=== PATIENT | male | born 1970 | race American Indian/Alaskan Native ===

== ENCOUNTER 2018-10-17 17:27 | Emergency (ER) | payer SELFPAY ==
--- NOTE | 2018-10-17 17:30 | Emergency Department Report ---
Blank Doc - Documentation Documentation: This is a 48-year-old male that presents to the ED with c/o of detox for alcohol and cocaine. Stated last time using this was this morning. Denies any SI/HI/ Denies any other complaints. This initial assessment diagnostic orders/clinical plan/treatment(s) is/are subject to change based on patient's health status, clinical progression and re- assessment by fellow clinical providers in the ED. Further treatment and workup at subsequent clinical providers discretion. Patient/guardians urged not to elope from ED s their condition may be serious if not clinically assessed and managed. Initial orders include: 1-patient sent to [facility] for further evaluation and treatment. 2- labs 3-UA
[2018-10-17 17:33] VITALS: BP 135/79
[2018-10-17 18:06] LABS: Bilirubin,Urine NEG (Negative); Blood,Urine NEG (Negative); Color,Urine Yellow (Yellow); Mucus,Urine FEW /HPF; Protein,Urine <15 mg/dL mg/dL (Negative)
[2018-10-17 18:13] LABS: Amphetamine Screen,Urine PRESUMPTIVE NEGATIVE; Benzodiazepines Screen,Urine PRESUMPTIVE NEGATIVE; Cannabinoid Screen,Urine PRESUMPTIVE NEGATIVE; Methadone Screen,Urine PRESUMPTIVE NEGATIVE; Opiate Screen,Urine PRESUMPTIVE NEGATIVE
[2018-10-17 18:21] LABS: Basophils % (Auto) 0.7 % (0.0-1.8); Eosinophils # (Auto) 0.2 K/mm3 (0.0-0.4); Eosinophils % (Auto) 3.6 % (0.0-4.3); Hemoglobin 15.7 gm/dl (11.8-15.2); Lymphocytes # (Auto) 1.8 K/mm3 (1.2-5.4); Lymphocytes % (Auto) 28.1 % (13.4-35.0); Mean Corpuscular HGB Conc 33 % (32-34); Mean Corpuscular Volume 94 fl (84-94); Monocytes # (Auto) 0.9 K/mm3 (0.0-0.8); Monocytes % (Auto) 14.3 % (0.0-7.3); Platelet Count 285 K/mm3 (140-440); Red Blood Count 5.12 M/mm3 (3.65-5.03); Red Cell Distribution Width 15.6 % (13.2-15.2)
[2018-10-17 18:26] LABS: Cocaine Screen,Urine PRESUMPTIVE POSITIVE
[2018-10-17 18:35] LABS: Alanine Aminotransferase 30 units/L (7-56); Albumin 3.4 g/dL (3.9-5); BUN/Creatinine Ratio 16; Blood Urea Nitrogen 16 mg/dL (9-20); Calcium 8.5 mg/dL (8.4-10.2); Hemolysis Index 8
--- NOTE | 2018-10-17 20:36 | Emergency Department Report ---
ED Alcohol HPI - General Chief Complaint: Alcohol Stated Complaint: DETOX Time Seen by Provider: 10/17/18 17:29 Source: patient Mode of arrival: Ambulatory Limitations: No Limitations - History of Present Illness Initial Comments: Patient is here for detoxification from alcohol and cocaine abuse. Patient is said he has been abusing alcohol and cocaine for the last 8 years. He stopped for a while and then relapsed a month ago. Now he wants detoxification from alcohol and cocaine. He has no medical complaints today. He denies suicide ideation or homicide ideation. Patient said he has history of depression and he has been taking Lexapro but he ran out of his medication couple of months ago. MD Complaint: alcohol dependence, medical clearance for det Last Drink: unknown Chronic Alcohol Use: Yes Previous Visits for Alcohol Intoxication?: Yes Recent Trauma: No Associated Symptoms: denies other symptoms Treatments Prior to Arrival: none - Related Data Home Medications Medication Instructions Recorded Confirmed Last Taken No Known Home Medications [No 10/17/18 10/17/18 Unknown Reported Home Medications] Allergies Allergy/AdvReac Type Severity Reaction Status Date / Time No Known Allergies Allergy Unverified 08/15/18 09:41 ED Review of Systems ROS: Stated complaint: DETOX Other details as noted in HPI Comment: All other systems reviewed and negative Constitutional: denies: chills, fever Eyes: denies: eye pain, eye discharge, vision change ENT: denies: ear pain, throat pain Respiratory: denies: cough, shortness of breath, wheezing Cardiovascular: denies: chest pain, palpitations Endocrine: no symptoms reported Gastrointestinal: denies: abdominal pain, nausea, diarrhea Genitourinary: denies: urgency, dysuria Musculoskeletal: denies: back pain, joint swelling, arthralgia Skin: denies: rash, lesions Neurological: denies: headache, weakness, paresthesias Psychiatric: denies: anxiety, depression Hematological/Lymphatic: denies: easy bleeding, easy bruising ED Past Medical Hx - Past Medical History Previous Medical History?: Yes Hx Psychiatric Treatment: Yes (Depression) Additional medical history: ETOH abuse, Cocaine abuse - Surgical History Past Surgical History?: Yes Additional Surgical History: Brain - Social History Smoking Status: Current Every Day Smoker Substance Use Type: Alcohol, Cocaine, Marijuana - Medications Home Medications: Home Medications Medication Instructions Recorded Confirmed Last Taken Type No Known Home Medications [No 10/17/18 10/17/18 Unknown History Reported Home Medications] ED Physical Exam - General Limitations: No Limitations General appearance: alert, in no apparent distress - Head Head exam: Present: atraumatic, normocephalic, normal inspection - Eye Eye exam: Present: normal appearance, PERRL, EOMI Pupils: Present: normal accommodation - ENT ENT exam: Present: normal exam, normal orophraynx, mucous membranes moist - Neck Neck exam: Present: normal inspection, full ROM. Absent: tenderness - Respiratory Respiratory exam: Present: normal lung sounds bilaterally. Absent: respiratory distress - Cardiovascular Cardiovascular Exam: Present: regular rate, normal rhythm, normal heart sounds. Absent: systolic murmur, diastolic murmur, rubs, gallop - GI/Abdominal GI/Abdominal exam: Present: soft, normal bowel sounds. Absent: distended, tenderness, guarding, rebound - Rectal Rectal exam: Present: deferred - Extremities Exam Extremities exam: Present: normal inspection, full ROM, normal capillary refill. Absent: tenderness - Back Exam Back exam: Present: normal inspection, full ROM. Absent: tenderness - Neurological Exam Neurological exam: Present: alert, oriented X3, CN II-XII intact - Psychiatric Psychiatric exam: Present: normal affect, normal mood - Skin Skin exam: Present: warm, dry, intact, normal color. Absent: rash ED Course Vital Signs 10/17/18 10/17/18 17:29 17:31 Temperature 97.8 F Pulse Rate 81 Respiratory 18 18 Rate Blood Pressure 135/79 O2 Sat by Pulse 97 97 Oximetry ED Medical Decision Making - Lab Data Result diagrams: 10/17/18 18:02 10/17/18 18:02 - EKG Data -: EKG Interpreted by Me EKG shows normal: sinus rhythm Rate: normal (77) - EKG Data When compared to previous EKG there are: previous EKG unavailable Interpretation: nonspecific ST-T wave manav, LVH 10/17/18 20:52 No STEMI. - Medical Decision Making Medical Clearance for alcohol and cocaine abuse. Patient is medically cleared for evaluation for detoxification from alcohol and cocaine. However patient does meet criteria for admission to [facility] for detoxification in this hospital according to the mental health worker who evaluated the patient in the emergency room. She recommended discharging the patient home and for the patient to follow up with the facilities where he can get detoxification. She have provided resources for the patient to follow-up at one of those facilities. Critical care attestation.: If time is entered above; I have spent that time in minutes in the direct care of this critically ill patient, excluding procedure time. ED Disposition Clinical Impression: Alcohol abuse, Cocaine abuse Disposition: DC-01 TO HOME OR SELFCARE Is pt being admited?: No Does the pt Need Aspirin: No Condition: Stable Instructions: Abuse of Alcohol (ED), Cocaine Abuse (ED) Additional Instructions: Please follow up with the resource places you have being provided by the mental health worker for detoxification from alcohol and cocaine. Please STOP using Cocaine and Alcohol. Return to the emergency room if her condition worsens. Referrals: PRIMARY CARE, [Primary Care Provider] - 3-5 Days Time of Disposition: 22:18
== END 2018-10-17 22:30 | disposition home or self-care (01) ==
LOC: ED 17:27
DX: F10.10 Alcohol abuse, uncomplicated (principal); F14.10 Cocaine abuse, uncomplicated; F32.9 Major depressive disorder, single episode, unspecified; F17.200 Nicotine dependence, unspecified, uncomplicated; F12.10 Cannabis abuse, uncomplicated; Z79.899 Other long term (current) drug therapy
CPT/HCPCS: 36415; 80053; 80307; 81001; 83735; 84443; 85025; 93005; 93010; 99284; G0480; 80320

== ENCOUNTER 2018-12-08 19:01 | Emergency (ER) | payer OTHER ==
[2018-12-08 19:35] VITALS: BP 113/76
--- NOTE | 2018-12-08 19:35 | Emergency Department Report ---
Blank Doc - Documentation Documentation: This is a 48-year-old male that presents with right middle finger pain. This initial assessment/diagnostic orders/clinical plan/treatment(s) is/are subject to change based on patient's health status, clinical progression and re- assessment by fellow clinical providers in the ED. Further treatment and workup at subsequent clinical providers discretion. Patient/guardians urged not to elope from the ED as their condition may be serious if not clinically assessed and managed. Initial orders include: 1- Patient sent to [facility] for further evaluation and treatment 2- xray
--- NOTE | 2018-12-08 20:56 | XRay Report ---
PROCEDURE: XR FINGER(S) 2+V RT TECHNIQUE: 3 views right hand HISTORY: right middle finger pain no trauma history provided COMPARISONS: None FINDINGS: Normal bony mineralization. No fracture or dislocation. No radiopaque foreign body or soft tissue gas. Mild triangular fibrocartilage calcification and mild radiocarpal joint space narrowing. IMPRESSION: No abnormality of the distal right third digit.. This document is electronically signed by Justine Giraldo MD., December 08 2018 08:54:13 PM ET
--- NOTE | 2018-12-08 22:28 | Emergency Department Report ---
- General Chief complaint: Extremity Problem,Nontraumatic Stated complaint: RT MIDDLE FINGER PAIN Time Seen by Provider: 12/08/18 19:31 Source: patient Mode of arrival: Ambulatory Limitations: No Limitations - History of Present Illness Initial comments: 48-year-old [place] male reports emerge department complaining of pain to his right third third digit off and on since 2018 which occur for that unknown etiology. [place] dull throbbing pain. There some occasional redness which is growing more tender since the onset. The pain has not been consistent since August but has been fluctuating. 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 Reports no fever, chills, sweats, chest pain, palpitations, numbness, tingling, discharge from the finger. Was seen in August and diagnosed with arthralgia, but thinks that there is more going on, has not yet followed up with primary care provider as instructed Location: R hand Severity: mild, moderate (maximum moderate-severe pain. Currently, worse with touch) Quality: dull Consistency: constant Improves with: none Worsens with: none Treatments Prior to Arrival: none - Related Data Previous Rx's Medication Instructions Recorded Last Taken Type Acyclovir [Zovirax Tab] 800 mg PO 5XD #50 tablet 12/08/18 Unknown Rx Ketorolac [Toradol] 10 mg PO Q6H PRN #15 tablet 12/08/18 Unknown Rx Sulfamethoxazole/Trimethoprim 1 each PO BID #20 tablet 12/08/18 Unknown Rx [Bactrim Ds] Allergies Allergy/AdvReac Type Severity Reaction Status Date / Time No Known Allergies Allergy Unverified 08/15/18 09:41 Abscess Boil HPI - HPI Chief Complaint: Extremity Problem,Nontraumatic Stated Complaint: RT MIDDLE FINGER PAIN Time Seen by Provider: 12/08/18 19:31 Home Medications: Previous Rx's Medication Instructions Recorded Last Taken Type Acyclovir [Zovirax Tab] 800 mg PO 5XD #50 tablet 12/08/18 Unknown Rx Ketorolac [Toradol] 10 mg PO Q6H PRN #15 tablet 12/08/18 Unknown Rx Sulfamethoxazole/Trimethoprim 1 each PO BID #20 tablet 12/08/18 Unknown Rx [Bactrim Ds] Allergies/Adverse Reactions: Allergies Allergy/AdvReac Type Severity Reaction Status Date / Time No Known Allergies Allergy Unverified 08/15/18 09:41 ED Review of Systems ROS: Stated complaint: RT MIDDLE FINGER PAIN Other details as noted in HPI Constitutional: denies: chills, fever Eyes: denies: eye pain, eye discharge, vision change ENT: denies: ear pain, throat pain Respiratory: denies: cough, shortness of breath, wheezing Cardiovascular: denies: chest pain, palpitations Endocrine: no symptoms reported Gastrointestinal: denies: abdominal pain, nausea, diarrhea Genitourinary: denies: urgency, dysuria Musculoskeletal: denies: back pain, joint swelling, arthralgia Skin: denies: rash, lesions Neurological: denies: headache, weakness, paresthesias Psychiatric: denies: anxiety, depression Hematological/Lymphatic: denies: easy bleeding, easy bruising ED Past Medical Hx - Past Medical History Previous Medical History?: Yes Hx Psychiatric Treatment: Yes (Depression) Additional medical history: ETOH abuse, Cocaine abuse - Surgical History Past Surgical History?: Yes Additional Surgical History: Brain sx, 2016 - Social History Smoking Status: Former Smoker Substance Use Type: None - Medications Home Medications: Home Medications Medication Instructions Recorded Confirmed Last Taken Type Acyclovir [Zovirax Tab] 800 mg PO 5XD #50 tablet 12/08/18 Unknown Rx Ketorolac [Toradol] 10 mg PO Q6H PRN #15 tablet 12/08/18 Unknown Rx Sulfamethoxazole/Trimethoprim 1 each PO BID #20 tablet 12/08/18 Unknown Rx [Bactrim Ds] ED Physical Exam - General Limitations: No Limitations General appearance: alert, in no apparent distress - Head Head exam: Present: atraumatic, normocephalic - Eye Eye exam: Present: normal appearance, PERRL, EOMI Pupils: Present: normal accommodation - ENT ENT exam: Present: normal exam, mucous membranes moist, TM's normal bilaterally - Neck Neck exam: Present: normal inspection, full ROM - Respiratory Respiratory exam: Present: normal lung sounds bilaterally. Absent: respiratory distress - Cardiovascular Cardiovascular Exam: Present: regular rate, normal rhythm. Absent: systolic murmur, diastolic murmur, rubs, gallop - GI/Abdominal GI/Abdominal exam: Present: soft, normal bowel sounds - Rectal Rectal exam: Present: deferred - Extremities Exam Extremities exam: Present: normal inspection - Back Exam Back exam: Present: normal inspection - Neurological Exam Neurological exam: Present: alert, oriented X3 - Psychiatric Psychiatric exam: Present: normal affect, normal mood - Skin Skin exam: Present: warm, dry, intact, normal color. Absent: rash ED Course Vital Signs 12/08/18 19:33 Temperature 98.1 F Pulse Rate 66 Respiratory 18 Rate Blood Pressure 113/76 O2 Sat by Pulse 100 Oximetry Critical care attestation.: If time is entered above; I have spent that time in minutes in the direct care of this critically ill patient, excluding procedure time. ED Disposition Clinical Impression: Finger infection Disposition: DC-01 TO HOME OR SELFCARE Is pt being admited?: No Does the pt Need Aspirin: No Condition: Stable Additional Instructions: What's to know about herpetic holly? Last reviewed Thu28 Jan 2017 By Diego Jerry Reviewed by Annalisa Serrano MD, MPH Symptoms Causes and risk factors Treatment Home care [place] Herpetic holly or holly finger is a painful infection that may cause other symptoms to show up. The infection may appear in adults or children, and there are several ways to treat it. Herpetic holly is an infection created by the herpes simplex virus (HSV). The infection produces a painful wound called a holly on the fingers. Caused by the herpes simplex virus (HSV), herpetic holly occurs mostly on the fleshy part of the index finger or thumb. Sometimes herpetic holly can develop on the toes. This article explores the symptoms, causes, and various treatment methods for this painful infection. Symptoms [herpetic holly wikicommons sarina toney md 16 october 2009] Herpetic holly lesions are generally small and very painful. When the herpes simplex virus infection appears on the finger in the form of a holly, the symptoms are similar to herpes on other parts of the body: Timing: The first symptoms usually appear 2-20 days after the person is exposed to the herpes simplex virus. Sensation: The infected area will burn or tingle, and the person may begin to experience pain before any noticeable lesion shows up. Infection: The finger will then begin to swell and eduardo as the infection develops. Blisters will appear and begin to fill with liquid or pus. There may be just one blister, or a group of them may develop. They are typically small and very painful to the touch. Rupture: These blisters will then burst and scab over in the weeks to come. Once the scabs heal, the infection returns to its dormant state. Other symptoms may appear at any time during the infection, including: swollen lymph nodes in the armpits or elbow area a fever red solitario surrounding or leading away from the holly The sores that the infection creates may recur in some people over time. Whitlows will usually reappear in the same area as the primary infection. There may be certain factors which trigger recurrent HSV infections, such as herpetic holly, including: fever or recurring illness excessive stress hormonal imbalance excessive sun exposure surgery physical, mental, or emotional trauma Recurrent infections will also typically follow a pattern similar to the primary infection. People will feel sensations of tingling, burning, or itching about 24 hours before the sores show up. A recurrent infection usually lasts little more than a week and is not as strong as the primary infection. There may be fewer blisters during a recurrent infection, and those blisters may also be smaller and less painful. Causes and risk factors [dentists looking into a patients mouth] Medical and dental professionals have a higher risk of coming in contact with HSV-1. HSV is the virus that commonly causes cold sores and genital herpes. It is also the cause of herpetic holly. There are two types of HSV; HSV-1 and HSV-2. HSV-1 infections usually occur around the face, in the mouth, nose or lips. HSV-2 infections typically involve the area around the genitals. The infection can occur in men and women of all ages, though symptoms caused by HSV-1 appear to be more common in children and young adults. Certain professionals may be more at risk for HSV-1 and complications, such as herpetic holly. These people may include medical or dental professionals and anyone who works in close collaboration with people who have the infection. The rest of the population is commonly infected by HSV-2, often through sexual contact. People with weakened immune systems are more at risk for becoming infected with HSV. Herpetic holly is very contagious. Infections are easily spread by coming into direct contact with the infected sores or blisters of someone with herpetic holly. A person can also infect themselves if they touch one of their own cold sores or genital herpes sores with their fingers. It is vital that the holly is treated properly. Unchecked whitlows put a person at risk for superinfections or conditions, such as herpetic encephalitis, which is a herpes infection in the brain. Treatment Antiviral medications are often used to treat herpetic holly. These antivirals are effective in reducing the duration of symptoms in the primary infection as well as in recurrent infections. It is crucial to begin antiviral treatment within the first 48 hours of any symptoms occurring. Using an antiviral to treat herpetic holly after the initial 48 hours will likely have little effect. Antiviral treatment is used to help reduce the healing time and time spent in pain. Antiviral treatment may also reduce the risk for the virus to spread to other parts of the body. However, if the person does not take antiviral medications, the holly will heal itself over a few weeks without any drugs. [topical cream for dermatological conditions] Treatment for herpetic holly can involve oral medications and topical creams. Antiviral agents that are commonly used to treat herpetic holly include: oral valacyclovir oral acyclovir oral famciclovir topical acyclovir ointment analgesics to numb pain Antiviral medications are typically used for 1-2 weeks or until the infection clears up. In cases where the holly develops a secondary bacterial infection, antibiotics may also be necessary. On rare occasions, where people have severe recurrent outbreaks, a doctor may prescribe suppressive medications. People should take these suppressive antiviral medications daily to try to decrease outbreaks. It is important to note that antiviral medications can help treat an HSV outbreak, such as a herpetic holly, but they do not prevent future outbreaks. Antiviral drugs are not a treatment for HSV itself, only the symptoms. Home care People can support the recovery of herpetic holly in the home through a few different methods: Covering the infection: Lightly covering the infected area can help keep the virus from spreading. It is also important for people to refrain from popping or draining the blisters. This can cause the virus to spread even further or cause a secondary infection. Being hygienic: People should follow proper hygiene at all times, especially after coming into contact with the holly. People working in the medical or dental field should always follow basic hygiene rules and work with gloves whenever possible to protect themselves and other people. Switching to glasses: People who wear contacts may want to switch to glasses until the infection heals to avoid it spreading to the eyes. Many people take over the counter drugs or use ice packs to lessen the pain of the holly as well. Preventing spread: Avoiding contact with lesions is an important step in keeping the virus from spreading. Telling [place] people: People with HSV should also tell any medical or dental professional who works close to them about the virus so they can take measures to avoid it. [place] Herpes simplex virus can remain inactive in the nerve cells for a time, and may or may not cause symptoms. In some cases, people never have a recurring holly. In others, whitlows often return and require regular treatment. It is best for people to discuss their symptoms and treatment options with a qualified health hemodialysis patient care specialist. Together they can work out a plan that fits the person's individual needs and makes treatment as comfortable as possible. Prescriptions: Sulfamethoxazole/Trimethoprim [Bactrim Ds] 1 each PO BID #20 tablet Ketorolac [Toradol] 10 mg PO Q6H PRN #15 tablet PRN Reason: Pain Acyclovir [Zovirax Tab] 800 mg PO 5XD #50 tablet Referrals: NERI VILLANUEVA MD [Primary Care Provider] - 3-5 Days
== END 2018-12-08 22:40 | disposition home or self-care (01) ==
LOC: ED 19:01
DX: L08.9 Local infection of the skin and subcutaneous tissue, unspecified (principal); F32.9 Major depressive disorder, single episode, unspecified; F14.10 Cocaine abuse, uncomplicated; Z87.891 Personal history of nicotine dependence

== ENCOUNTER 2019-07-26 07:49 | Emergency (ER) | payer SELFPAY ==
--- NOTE | 2019-07-26 08:41 | Emergency Department Report ---
ED General Adult HPI - General Chief complaint: Chest Pain Stated complaint: CHEST PAIN Time Seen by Provider: 07/26/19 08:27 Source: patient Mode of arrival: Ambulatory Limitations: No Limitations - History of Present Illness Initial comments: 49-year-old male presents to ED with complaint of right-sided chest pain 1 month. Patient states pain is intermittent, worse with movement, cough, sneezing. He denies fever, shortness of breath, leg pain or swelling, nausea or diaphoresis associated with this pain. Patient denies any injury or fall or hea vy lifting. Patient states he was seen at an outside hospital approximately 2 weeks ago for same symptoms, but reports a negative workup. -: month(s) (1) Location: chest Radiation: back (right side) Quality: aching Consistency: intermittent Improves with: immobilization Worsens with: movement, other (coughing, sneezing) Associated Symptoms: chest pain, cough. denies: diaphoresis, fever/chills, n ausea/vomiting, shortness of breath - Related Data Previous Rx's Medication Instructions Recorded Last Taken Type Acyclovir [Zovirax Tab] 800 mg PO 5XD #50 tablet 12/08/18 Unknown Rx Ketorolac [Toradol] 10 mg PO Q6H PRN #15 tablet 12/08/18 Unknown Rx Sulfamethoxazole/Trimethoprim 1 each PO BID #20 tablet 12/08/18 Unknown Rx [Bactrim Ds] Naproxen [Naprosyn] 500 mg PO BID #20 tablet 07/26/19 Unknown Rx methOCARBAMOL [Robaxin TAB] 500 mg PO Q8HR PRN #20 tablet 07/26/19 Unknown Rx Allergies Allergy/AdvReac Type Severity Reaction Status Date / Time No Known Allergies Allergy Verified 07/26/19 08:03 ED Review of Systems ROS: Stated complaint: CHEST PAIN Other details as noted in HPI Comment: All other systems reviewed and negative Constitutional: denies: chills, fever Respiratory: cough. denies: shortness of breath Cardiovascular: chest pain Gastrointestinal: denies: nausea, vomiting Musculoskeletal: other (denies leg pain or swelling) ED Past Medical Hx - Past Medical History Hx Psychiatric Treatment: Yes (Depression) Additional medical history: ETOH abuse, Cocaine abuse - Surgical History Additional Surgical History: Brain sx, 2016 - Social History Smoking Status: Current Every Day Smoker - Medications Home Medications: Home Medications Medication Instructions Recorded Confirmed Last Taken Type Acyclovir [Zovirax Tab] 800 mg PO 5XD #50 tablet 12/08/18 Unknown Rx Ketorolac [Toradol] 10 mg PO Q6H PRN #15 tablet 12/08/18 Unknown Rx Sulfamethoxazole/Trimethoprim 1 each PO BID #20 tablet 12/08/18 Unknown Rx [Bactrim Ds] Naproxen [Naprosyn] 500 mg PO BID #20 tablet 07/26/19 Unknown Rx methOCARBAMOL [Robaxin TAB] 500 mg PO Q8HR PRN #20 tablet 07/26/19 Unknown Rx ED Physical Exam - General Limitations: No Limitations General appearance: alert, in no apparent distress - Head Head exam: Present: atraumatic, normocephalic - Eye Eye exam: Present: normal appearance - ENT ENT exam: Present: mucous membranes moist - Neck Neck exam: Present: normal inspection - Respiratory Respiratory exam: Present: normal lung sounds bilaterally, chest wall tenderness (right anterior chest wall). Absent: respiratory distress - Cardiovascular Cardiovascular Exam: Present: regular rate, normal rhythm - GI/Abdominal GI/Abdominal exam: Present: soft. Absent: distended, tenderness - Extremities Exam Extremities exam: Present: normal inspection, other (pain with range of motion of right shoulder) - Back Exam Back exam: Present: normal inspection - Neurological Exam Neurological exam: Present: alert, oriented X3, CN II-XII intact. Absent: motor sensory deficit - Psychiatric Psychiatric exam: Present: normal affect, normal mood - Skin Skin exam: Present: warm, dry, intact, normal color. Absent: rash ED Course Vital Signs 07/26/19 07/26/19 07/26/19 07:57 08:03 09:37 Temperature 98.1 F 98.1 F Pulse Rate 72 73 Respiratory 18 18 16 Rate Blood Pressure 116/73 116/73 Blood Pressure [Left] O2 Sat by Pulse 97 96 Oximetry 07/26/19 09:50 Temperature Pulse Rate 71 Respiratory 16 Rate Blood Pressure Blood Pressure 118/71 [Left] O2 Sat by Pulse 97 Oximetry ED Medical Decision Making - EKG Data -: EKG Interpreted by Hi EKG shows normal: sinus rhythm, axis, intervals, QRS complexes, ST-T waves Rate: normal - EKG Data Interpretation: no acute changes - Radiology Data Radiology results: report reviewed, image reviewed - Medical Decision Making 49-year-old male with right-sided chest pain times one month. EKG and chest x- ray are unremarkable. Patient has chest wall tenderness on exam. Also has pain with range of motion of the right shoulder, which he underwent rotator cuff surgery approximately 4 years ago. Patient's pain appears to be musculoskeletal in origin. Prescriptions given. Outpatient follow-up advised. Return precautions given. - Differential Diagnosis costochondritis, pneumonia, pneumothorax, ACS Critical care attestation.: If time is entered above; I have spent that time in minutes in the direct care of this critically ill patient, excluding procedure time. ED Disposition Clinical Impression: Costochondritis Disposition: - TO HOME OR SELFCARE Is pt being admited?: No Condition: Stable Instructions: Costochondritis (ED) Prescriptions: Naproxen [Naprosyn] 500 mg PO BID #20 tablet methOCARBAMOL [Robaxin TAB] 500 mg PO Q8HR PRN #20 tablet PRN Reason: Muscle Spasm Referrals: [facility] [Provider Group] - 3-5 Days [facility], [Primary Care Provider] - 3-5 Days Time of Disposition: 09:38
--- NOTE | 2019-07-26 09:30 | XRay Report ---
CHEST 2 VIEWS INDICATION: R chest pain. COMPARISON: FINDINGS: Support devices: None. Heart: Within normal limits. Lungs: Bronchovascular markings are prominent. No acute air space or interstitial disease. Pleura: No significant pleural effusion. No pneumothorax. Additional findings: None. IMPRESSION: 1. No acute findings. Signer Name: Ajit Walters MD Signed: 07/26/2019 9:26 AM Workstation Name: [id number]
[2019-07-26 09:51] VITALS: BP 118/71
== END 2019-07-26 09:50 | disposition home or self-care (01) ==
LOC: ED 07:49
DX: M94.0 Chondrocostal junction syndrome [Tietze] (principal); F32.9 Major depressive disorder, single episode, unspecified; F10.10 Alcohol abuse, uncomplicated; F17.200 Nicotine dependence, unspecified, uncomplicated; Z79.899 Other long term (current) drug therapy
CPT/HCPCS: 71046; 93005; 93010

== ENCOUNTER 2019-07-31 07:00 | Emergency (ER) | payer SELFPAY ==
[2019-07-31 12:01] LABS: Basophils # (Auto) 0.1 K/mm3 (0.0-0.1); Eosinophils # (Auto) 0.2 K/mm3 (0.0-0.4); Eosinophils % (Auto) 3.6 % (0.0-4.3); Hemoglobin 14.4 gm/dl (11.8-15.2); Lymphocytes # (Auto) 1.2 K/mm3 (1.2-5.4); Lymphocytes % (Auto) 18.6 % (13.4-35.0); Mean Corpuscular HGB Conc 33 % (32-34); Mean Corpuscular Volume 95 fl (84-94); Monocytes # (Auto) 0.9 K/mm3 (0.0-0.8); Monocytes % (Auto) 14.2 % (0.0-7.3); Platelet Count 266 K/mm3 (140-440); Red Blood Count 4.55 M/mm3 (3.65-5.03); Red Cell Distribution Width 15.4 % (13.2-15.2)
--- NOTE | 2019-07-31 12:21 | XRay Report ---
CHEST 2 VIEWS INDICATION: MAIN: Chest Pain; Pt seems a slightly sleepy. Responds appropriately to all question. C/o L chest and axillary pain with inspiration and cough. Denies fever or production in cough. . COMPARISON: 07/26/2019 FINDINGS: Support devices: None. Heart: Within normal limits. Lungs/pleura: Minimal streaky bibasilar airspace disease likely representing atelectasis. Otherwise c lear lungs. No pneumothorax. Additional findings: None. IMPRESSION: 1. Pulmonary findings as above. Signer Name: Gaurav Guidry MD Signed: 07/31/2019 12:17 PM Workstation Name: [id number]
[2019-07-31 12:22] LABS: BUN/Creatinine Ratio 12; Blood Urea Nitrogen 12 mg/dL (9-20); Calcium 8.6 mg/dL (8.4-10.2); Hemolysis Index 2
--- NOTE | 2019-07-31 12:46 | Emergency Department Report ---
ED Chest Pain HPI - General Chief Complaint: Chest Pain Stated Complaint: STILL CHEST PAIN Time Seen by Provider: 07/31/19 12:30 Source: patient Mode of arrival: Ambulatory Limitations: No Limitations - History of Present Illness Initial Comments: 49-year-old male with a past medical history of depression, intermittent cocaine use, intermittent alcohol use presents to the hospital complains of right sided chest pain 1 month. Pain is aching, constant, worsens movement, palpation, cough, and deep inspiration. Pain is moderate in intensity. Patient is drowsy during an examination and states that he works third shift. Patient denies shortness of breath, calf tenderness, leg edema, recent travel, history of PE/DVT, nausea, vomiting, or diaphoresis. Patient has a history of right rotator cuff surgery. He denies recent heavy lifting. Patient was seen and evaluated here July 26 for the same pain. Diagnosed with costochondritis and prescribed, Naprosyn and Robaxin. Patient has not picked up the medication from the pharmacy. - Related Data Previous Rx's Medication Instructions Recorded Last Taken Type Acyclovir [Zovirax Tab] 800 mg PO 5XD #50 tablet 12/08/18 Unknown Rx Ketorolac [Toradol] 10 mg PO Q6H PRN #15 tablet 12/08/18 Unknown Rx Sulfamethoxazole/Trimethoprim 1 each PO BID #20 tablet 12/08/18 Unknown Rx [Bactrim Ds] Naproxen [Naprosyn] 500 mg PO BID #20 tablet 07/26/19 Unknown Rx methOCARBAMOL [Robaxin TAB] 500 mg PO Q8HR PRN #20 tablet 07/26/19 Unknown Rx Allergies Allergy/AdvReac Type Severity Reaction Status Date / Time No Known Allergies Allergy Verified 07/26/19 08:03 Heart Score - HEART Score History: Slightly suspicious EKG: Normal Age: 45-65 Risk factors: 1-2 risk factors Troponin: < normal limit HEART Score: 2 ED Review of Systems ROS: Stated complaint: STILL CHEST PAIN Other details as noted in HPI Comment: All other systems reviewed and negative ED Past Medical Hx - Past Medical History Previous Medical History?: Yes Hx Psychiatric Treatment: Yes (Depression) Additional medical history: ETOH abuse, Cocaine abuse - Surgical History Past Surgical History?: Yes Additional Surgical History: Brain sx, 2016 - Social History Smoking Status: Current Every Day Smoker Substance Use Type: None - Medications Home Medications: Home Medications Medication Instructions Recorded Confirmed Last Taken Type Acyclovir [Zovirax Tab] 800 mg PO 5XD #50 tablet 12/08/18 Unknown Rx Ketorolac [Toradol] 10 mg PO Q6H PRN #15 tablet 12/08/18 Unknown Rx Sulfamethoxazole/Trimethoprim 1 each PO BID #20 tablet 12/08/18 Unknown Rx [Bactrim Ds] Naproxen [Naprosyn] 500 mg PO BID #20 tablet 07/26/19 Unknown Rx methOCARBAMOL [Robaxin TAB] 500 mg PO Q8HR PRN #20 tablet 07/26/19 Unknown Rx ED Physical Exam - General Limitations: No Limitations - Other Other exam information: General: No acute distress Head: Atraumatic Eyes: normal appearance ENT: Moist mucous membranes Neck: Normal appearance, no midline tenderness. Reproducible right sided chest wall tenderness Chest: Clear to auscultation bilaterally CV: Regular rate and rhythm Abdomen: Soft, normal bowel sounds, nontender, nondistended, no rebound or guarding Back: Normal inspection Extremity: Normal inspection infection, full range of motion, no calf tenderness or leg edema Neuro: Alert O x 3, no facial asymmetry, speech clear, no gross motor sensory deficit Psych: Appropriate behavior Skin: No rash ED Course Vital Signs 07/31/19 07/31/19 07:15 07:16 Temperature 98.6 F 98.6 F Pulse Rate 83 83 Respiratory 16 16 Rate Blood Pressure 121/76 121/76 O2 Sat by Pulse 99 99 Oximetry JENNY score - Jenny Score Age > 65: (0) No Aspirin use within the Past 7 Days: (0) No 3 or more CAD Risk Factors: (0) No 2 or more Angina events in past 24 hrs: (0) No Known CAD with more than 50% Stenosis: (0) No Elevated Cardiac Markers: (0) No ED Medical Decision Making - Lab Data Result diagrams: 07/31/19 11:40 07/31/19 11:40 Lab Results 07/31/19 07/31/19 Range/Units 11:40 11:40 WBC 6.3 (4.5-11.0) K/mm3 RBC 4.55 (3.65-5.03) M/mm3 Hgb 14.4 (11.8-15.2) gm/dl Hct 43.0 (35.5-45.6) % MCV 95 H (84-94) fl MCH 32 (28-32) pg MCHC 33 (32-34) % RDW 15.4 H (13.2-15.2) % Plt Count 266 (140-440) K/mm3 Lymph % (Auto) 18.6 (13.4-35.0) % Saunders % (Auto) 14.2 H (0.0-7.3) % Eos % (Auto) 3.6 (0.0-4.3) % Baso % (Auto) 1.0 (0.0-1.8) % Lymph # 1.2 (1.2-5.4) K/mm3 Saunders # 0.9 H (0.0-0.8) K/mm3 Eos # 0.2 (0.0-0.4) K/mm3 Baso # 0.1 (0.0-0.1) K/mm3 Seg Neutrophils % 62.6 (40.0-70.0) % Seg Neutrophils # 3.9 (1.8-7.7) K/mm3 Sodium 142 (137-145) mmol/L Potassium 3.4 L (3.6-5.0) mmol/L Chloride 104.5 (98-107) mmol/L Carbon Dioxide 23 (22-30) mmol/L Anion Gap 18 mmol/L BUN 12 (9-20) mg/dL Creatinine 1.0 (0.8-1.5) mg/dL Estimated GFR > 60 ml/min BUN/Creatinine Ratio 12 % Glucose 103 H (75-100) mg/dL Calcium 8.6 (8.4-10.2) mg/dL Troponin T < 0.010 (0.00-0.029) ng/mL - EKG Data -: EKG Interpreted by Ia EKG shows normal: sinus rhythm, ST-T waves (mild repole similar to previous) - EKG Data When compared to previous EKG there are: no significant change - Radiology Data Radiology results: report reviewed CHEST 2 VIEWS INDICATION: MAIN: Chest Pain; Pt seems a slightly sleepy. Responds appropriately to all question. C/o L chest and axillary pain with inspiration and cough. Denies fever or production in cough. . COMPARISON: 07/26/2019 FINDINGS: Support devices: None. Heart: Within normal limits. Lungs/pleura: Minimal streaky bibasilar airspace disease likely representing atelectasis. Otherwise clear lungs. No pneumothorax. Additional findings: None. IMPRESSION: 1. Pulmonary findings as above. - Medical Decision Making Patient is reproducible right sided muscle skeletal pain times one month. X-ray findings noted. Patient denies shortness of breath. Patient has not filled his recently prescribed medications. Patient encouraged to follow-up with the primary care doctor or orthopedic doctor for further evaluation. - Differential Diagnosis muscle strain, costochondritis, pneumothorax, Critical Care Time: No Critical care attestation.: If time is entered above; I have spent that time in minutes in the direct care of this critically ill patient, excluding procedure time. ED Disposition Clinical Impression: Costochondritis, Right-sided chest wall pain Disposition: TO HOME OR SELFCARE Is pt being admited?: No Does the pt Need Aspirin: No Condition: Stable Instructions: Costochondritis (ED), Thoracic Pain (ED) Additional Instructions: Fill the recently prescribed medications. Follow-up with your doctor or doctor/clinic provided. Return if symptoms worsen as indicated by your discharge instructions. Referrals: RANDY TONG MD [Staff Physician] - 3-5 Days (orthopedics ) [facility] [Provider Group] - 3-5 Days (primary care doctor ) Time of Disposition: 12:50
[2019-07-31 13:00] VITALS: BP 124/64
[2019-07-31] MEDS ORDERED: NAPROXEN 500 MG TAB PO ONE (13:00)
== END 2019-07-31 13:14 | disposition home or self-care (01) ==
LOC: ED 07:00
DX: M94.0 Chondrocostal junction syndrome [Tietze] (principal)
CPT/HCPCS: 36415; 71046; 80048; 84484; 85025; 93005; 93010

== ENCOUNTER 2019-08-06 08:34 | Emergency (ER) | payer SELFPAY ==
[2019-08-06 08:42] VITALS: BP 112/74
--- NOTE | 2019-08-06 09:18 | Emergency Department Report ---
Chief Complaint: Dental/Oral Stated Complaint: SORES IN MOUTH Time Seen by Provider: 08/06/19 09:15 - HPI History of Present Illness: Mr. Hinkle presents with mouth soreness and white patches. On examination, superficial thin white patches on gum. DDX; gingivitis vs malignancy Strongly encouraged evaluation by dentist. MSE performed and completed - Exam Vital Signs: Vital Signs 08/06/19 08:39 Temperature 98.6 F Pulse Rate 70 Respiratory 18 Rate Blood Pressure 112/74 O2 Sat by Pulse 98 Oximetry MSE screening note: Focused history and physical exam performed. Due to findings the following was ordered: ED Disposition for MSE Clinical Impression: Gingiva disorder Disposition: MED SCREENING EXAM-LEFT Condition: Stable Referrals: [facility] [Outside] - 3-5 Days
== END 2019-08-06 09:21 | disposition left against medical advice (07) ==
LOC: ED 08:34
DX: K13.79 Other lesions of oral mucosa (principal); Z53.21 Procedure and treatment not carried out due to patient leaving prior to being seen by health care provider

== ENCOUNTER 2019-10-23 16:51 | Emergency (ER) | payer SELFPAY ==
[2019-10-23 17:49] VITALS: BP 128/72
--- NOTE | 2019-10-23 17:53 | Emergency Department Report ---
Chief Complaint: Extremity Injury, Lower Stated Complaint: RT FOOT TOE PAIN Time Seen by Provider: 10/23/19 17:46 - HPI History of Present Illness: pt is a 49 yo male who presents to the ED with c/o a lump on the right 4th toe that began two months ago no drainage no fever no n/v/d PMHx none no allergies to meds has not seen anyone for this no PCP no fall or injury states that he wears plastic boots for work Vitals are normal on exam: 1 cm area of hardened/callused skin present to the right 4th toe consistent with a corn, no drainage, no fluctuance, no erythema, FROM of the right 4th toe, neurovascularly intact No signs of infection, examination consistent with a corn Discussed [id number] treatments with patient Patient will be referred to a trekking guide and a primary care physician Adequate screening examination performed and there is no threat to life or limb at this time Discussed strict return precautions - Exam Vital Signs: Vital Signs 10/23/19 17:47 Temperature 98 F Pulse Rate 75 Respiratory 20 Rate Blood Pressure 128/72 O2 Sat by Pulse 99 Oximetry MSE screening note: Focused history and physical exam performed. ED Disposition for MSE Clinical Impression: [place] of toe Disposition: Z-07 MED SCREENING EXAM-LEFT Is pt being admited?: No Does the pt Need Aspirin: No Condition: Stable Additional Instructions: please soak in warm epsom salt. apply lotion. may use over the counter corn medication. avoid wearing anything that rubs the area. follow up with a trekking guide. follow up with a primary care doctor. return to the emergency room for any new or worsening symptoms. Referrals: REJI BILLS DPM [Staff Physician] - 3-5 Days AMY MACHUCA MD [Staff Physician] - 3-5 Days ALBERTO SMITH MD [Staff Physician] - 3-5 Days [facility] [Outside] - 3-[address] [facility] [Outside] - 3-5 Days Time of Disposition: 17:52 Print Language: SINHALA
== END 2019-10-23 18:25 | disposition left against medical advice (07) ==
LOC: ED 16:51
DX: L84 Corns and callosities (principal)
CPT/HCPCS: 99281

== ENCOUNTER 2019-11-10 16:49 | Emergency (ER) | payer SELFPAY ==
[2019-11-10 19:56] VITALS: BP 107/68
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
== END 2019-11-10 20:36 | disposition left against medical advice (07) ==
LOC: ED 16:49
DX: J20.8 Acute bronchitis due to other specified organisms (principal)
CPT/HCPCS: 99282

== ENCOUNTER 2021-11-12 19:05 | Emergency (ER) | payer SELFPAY ==
[2021-11-12 20:14] VITALS: BP 128/77
--- NOTE | 2021-11-12 20:56 | XRay Report ---
CHEST 2 VIEWS INDICATION / CLINICAL INFORMATION: cough. COMPARISON: 07/31/2019 FINDINGS: SUPPORT DEVICES: None. HEART / MEDIASTINUM: No significant abnormality. LUNGS / PLEURA: There is increase in interstitial markings in the lung bases and some minimal patchy parenchymal opacities in the right mid and upper lung zone and left midlung zone could represent carolee a or pneumonitis. No pneumothorax. ADDITIONAL FINDINGS: No significant additional findings. IMPRESSION: 1. Bilateral parenchymal opacities could represent mild edema or pneumonitis. Short-term follow-up ra diographs are recommended as the next several weeks to ensure clearing. Signer Name: Milton Phipps MD Signed: 11/12/2021 8:51 PM Workstation Name: [id number]
[2021-11-12] MEDS ORDERED: AZITHROMYCIN 250 MG TAB PO STA (22:16)
[2021-11-12] MEDS ORDERED: KETOROLAC 60 MG/2 ML INJ IM STA (22:19)
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
== END 2021-11-13 13:24 | disposition home or self-care (01) ==
LOC: ED 19:05
DX: J02.9 Acute pharyngitis, unspecified (principal); R05.9 Cough, unspecified
CPT/HCPCS: 71046; 96372; 99283; J1885